=== PATIENT | female | born 1995 | race Caucasian/White ===

== ENCOUNTER 2018-07-16 11:52 | Emergency (ER) | payer SELFPAY ==
[~2018-07-16 11:52] MED LIST: AMOX-362 PO; HYDR-4309 PO; IBUP400T13 PO; IUD
[2018-07-16 11:55] VITALS: BP 123/68
--- NOTE | 2018-07-16 12:07 | ER Report ---
History and Physical Time Seen By MD: 12:07 Hx. of Stated Complaint: JUMP OFF OF ROOF LAST NIGHT - LEFT FOOT PAIN HPI/ROS CHIEF COMPLAINT: foot pain HISTORY OF PRESENT ILLNESS: This is a 23 year old female. She jumped off a roof last night and now has pain in the left foot. No pain in lower leg. Pain arianna ewhat into medial ankle. Some tingling in her toes. Pain worsens with weight bearing. Has bruising and swelling. Allergies: Coded Allergies: No Known Drug Allergies (Unverified , 02/04/16) Home Meds Active Scripts Hydrocodone Bit/Acetaminophen (HYDROCODON-ACETAMINOPHEN 5-325) 1 Each Tablet, 1 EACH PO Q4H PRN for PAIN, #8 TAB 0 Refills Prov:ALAN MUÑOZ MD 07/16/18 Hydrocodone Bit/Acetaminophen (NORCO 5-325 TABLET) 1 Each Tablet, 1 EACH PO Q4H PRN for PAIN, #15 TAB Prov:ALEJO HANKINS DO 02/04/16 Amoxicillin (AMOXICILLIN) 500 Mg Capsule, 1 CAP PO TID for infection, #30 CAPSULE Prov:ALEJO HANKINS DO 02/04/16 Reported Medications Ibuprofen (IBUPROFEN) 400 Mg Tablet, 1 TAB PO Q6H, TAB 02/04/16 [Iud] No Conflict Check 02/04/16 Reviewed Nurses Notes: Yes Hx Smoking: No Hx Substance Use Disorder: No Constitutional Vital Sign - Last 24 Hours 07/16/18 11:55 Temp 98.5 Pulse 117 Resp 18 B/P (MAP) 123/68 Pulse Ox 93 O2 Delivery Room Air Physical Exam General: Alert, no acute distress. Musculoskeletal: Pain and swelling in the forefoot of the left foot. Minimal pain over medial malleolus, no pain over lateral malleolus. Can move foot and toes, but causes increased pain. Neuro: Normal sensation and motor function. Skin: Bruising, but no skin breakdown. Cardiovascular: Normal capillary refill and pulses. Medical Decision Making EKG/Imaging Imaging INDICATION: foot pain, jumped off roof. DATE: 07/16/2018 12:48 PM. TECHNIQUE: FOOT 3 VIEW LEFT, ANKLE 3 VIEW MIN LEFT COMPARISON: None FINDINGS: Left foot: There is a fracture the base of the fourth metatarsal. This is nondisplaced but may extend to the margins of the intermetatarsal articulations. The fracture does not appear to extend to the TMT articulation. Left ankle: Mortise alignment is normal. No evidence of fracture or dislocation. IMPRESSION: Nondisplaced fracture at the base of the fourth metatarsal. Report Dictated By: Tomeka Crum MD at 07/16/2018 12:48 PM ED Course/Re-evaluation ED Course Discussed imaging results with the patient. Recommended post-op shoe to protect, and crutches with no weightbearing until seen by orthopedic surgery. She will call upon leaving here to schedule a follow-up appointment with them. 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 Decision to Disposition Date: Jul 16, 2018 Decision to Disposition Time: 13:20 Depart Departure Latest Vital Signs Vital Signs Date Time Temp Pulse Resp B/P (MAP) Pulse Ox O2 Delivery O2 Flow Rate FiO2 07/16/18 11:55 98.5 117 18 123/68 93 Room Air Impression: Primary Impression: Foot fracture, left Condition: Improved Disposition: HOME OR SELF-CARE New Scripts Hydrocodone Bit/Acetaminophen (HYDROCODON-ACETAMINOPHEN 5-325) 1 Each Tablet 1 EACH PO Q4H PRN for PAIN, #8 TAB 0 Refills Prov: ALAN MUÑOZ MD 07/16/18 Patient Instructions: Foot Fracture in Adults (ED) Additional Instructions: Ibuprofen 200mg over the counter tablets, take 4 tablets three times a day with food. Lortab 5/325, one every 4 hours as needed for pain. Apply ice 20 minutes every 1-2 hours while awake. No weightbearing until you see orthopedic surgery. Off work until evaluated by orthopedic surgery. Keep the injured extremity elevated while at rest. Call [facility] today to schedule a follow-up appointment with them. Problem Qualifiers Primary Impression: Foot fracture, left Encounter type: initial encounter Fracture type: closed Qualified Codes: S92.902A - Unspecified fracture of left foot, initial encounter for closed fracture ALAN MUÑOZ MD Jul 16, 2018 12:07
--- NOTE | 2018-07-16 13:02 | RADIOLOGY IMAGING REPORT ---
FACILITY: [facility] [place] PATIENT NAME: Radha Brooks : 1995 MR: [id number] V: [id number] EXAM DATE: ORDERING PHYSICIAN: ALAN MUÑOZ TECHNOLOGIST: Location: [facility] [place] Patient: Radha Brooks : 1995 Visit/Account:[id number] Date of Sevice: 07/16/2018 INDICATION: foot pain, jumped off roof. DATE: 07/16/2018 12:48 PM. TECHNIQUE: FOOT 3 VIEW LEFT, ANKLE 3 VIEW MIN LEFT COMPARISON: None FINDINGS: Left foot: There is a fracture the base of the fourth metatarsal. This is nondisplaced but may extend to the margins of the intermetatarsal articulations. The fracture does not appear to extend to the T MT articulation. Left ankle: Mortise alignment is normal. No evidence of fracture or dislocation. IMPRESSION: Nondisplaced fracture at the base of the fourth metatarsal. Report Dictated By: Tomeka Crum MD at 07/16/2018 12:48 PM Report E-Signed By: Tomeka Crum MD at 07/16/2018 12:58 PM WSN:[id number]
--- NOTE | 2018-07-16 13:03 | RADIOLOGY IMAGING REPORT ---
FACILITY: [facility] PATIENT NAME: Radha Brooks : 1995 MR: [id number] V: [id number] EXAM DATE: ORDERING PHYSICIAN: ALAN MUÑOZ TECHNOLOGIST: Location: [facility] Patient: Radha Brooks : 1995 Visit/Account:[id number] Date of Sevice: 07/16/2018 INDICATION: foot pain, jumped off roof. DATE: 07/16/2018 12:48 PM. TECHNIQUE: FOOT 3 VIEW LEFT, ANKLE 3 VIEW MIN LEFT COMPARISON: None FINDINGS: Left foot: There is a fracture the base of the fourth metatarsal. This is nondisplaced but may extend to the margins of the intermetatarsal articulations. The fracture does not appear to extend to the T MT articulation. Left ankle: Mortise alignment is normal. No evidence of fracture or dislocation. IMPRESSION: Nondisplaced fracture at the base of the fourth metatarsal. Report Dictated By: Tomeka Crum MD at 07/16/2018 12:48 PM Report E-Signed By: Tomeka Crum MD at 07/16/2018 12:58 PM WSN:[id number]
[2018-07-16] MEDS ORDERED: LOR5/325 PO (13:21)
== END 2018-07-16 13:29 | disposition home or self-care (01) ==
LOC: ER 12:03
DX: S92.345A Nondisplaced fracture of fourth metatarsal bone, left foot, initial encounter for closed fracture (principal); Y93.39 Activity, other involving climbing, rappelling and jumping off
CPT/HCPCS: 99284